=== PATIENT | female | born 1995 | race Caucasian/White ===

== ENCOUNTER 2023-10-30 19:47 | Emergency (ER) | payer OTHER, SELFPAY ==
--- NOTE | ~2023-10-30 | US_ITS ---
EXAMINATION: US OB <=14 wk fetus w TV DATE: 10/30/2023 22:55 INDICATION: Back pain. Abdominal pain. Spotting. TECHNIQUE: Real-time transabdominal and transvaginal pelvic ultrasound was performed. COMPARISON: None. FINDINGS: TRANSABDOMINAL ULTRASOUND: The uterus measures 10.5 x 6.7 x 6.0 cm. TRANSVAGINAL ULTRASOUND: There is an intrauterine gestational sac. A yolk sac is identified. The fet al crown rump length measures 1.6 cm, which correlates with an estimated gestational age of 8 weeks a nd 0 day(s) (+/-) 5 day(s). heart motion is identified measuring 145 beats per minute (bpm) by M-mode Doppler. The right ovary measures 4.8 x 4.0 x 5.2 cm. There is a 4.9 cm cyst in right ovary. T he left ovary is not visualized. There is normal vascular flow in right ovary. There is no free fluid in the pelvis. IMPRESSION: 1. Single living intrauterine gestation with estimated date of delivery of 06/10/2024. 2. 4.9 cm cyst in right ovary, likely a follicular cyst. Reviewed, dictated and finalized at location E. ATIONS MGR
[2023-10-30 20:01] VITALS: BP 106/60; PULSE 120; RESP 20; TEMP 36.6; O2SAT 99
[2023-10-30] MEDS: ACETAMINOPHEN 500 MG TABLET 1000 MG PO (23:47)
--- NOTE | 2023-10-31 00:12 | ED.PREGNANCY ---
HPI - General Chief complaint: Vaginal Bleeding Stated complaint: 9 weeks- back pain/spotting Time Seen by Provider: 10/30/23 22:56 Source: patient Mode of arrival: ambulatory Limitations: no limitations History of Present Illness HPI Narrative: Patient is a 28-year-old female who presents the ED with report of lower back pain. Patient reports having pain all day today. She has not tried anything for the pain. She is currently around 9 weeks gestation. . She is scheduled follow-up with Dr. Dajuan Guevara. She has not had a ultrasound yet for this . Also reports having pain in her right lower pelvic region. Reports morning sickness for the last few weeks, denies current nausea. Denies vomiting today. Denies vaginal bleeding. Denies diarrhea, constipation, fevers, dysuria, hematuria, numbness, weakness, saddle anesthesia. Related Data Allergies Allergy/AdvReac Type Severity Reaction Status Date / Time No Known Allergies Allergy Verified 10/30/23 19:48 Review of Systems Review of Systems: CONSTITUTIONAL: Denies fever, chills, or sweats. CARDIOVASCULAR: Denies chest pain. RESPIRATORY: Denies cough or dyspnea. GASTROINTESTINAL: See HPI. GENITOURINARY: See HPI. MUSCULOSKELETAL: See HPI. All systems reviewed & are unremarkable except as noted in HPI and below Exam Narrative: GENERAL: Well appearing, thin, non-toxic, in no acute distress. HEAD: Normocephalic, atraumatic. RESPIRATORY: Airway patent, respirations nonlabored. Clear to auscultation bilaterally, no rales, rhonchi, wheezing. CARDIOVASCULAR: Regular rate and rhythm without murmurs, rubs, or gallops. ABDOMINAL: Soft, mild tenderness in right lower pelvic region, nondistended. Normoactive BS. MUSCULOSKELETAL: Moves all extremities. No gross deformities. No midline thoracic or lumbar spinal tenderness. Mild tenderness to right lumbosacral region. SKIN: Warm, dry, normal color. NEURO: A&O X3. Speech clear. Cranial nerves II-XII grossly intact. Steady gait. No ataxic movements. PSYCHIATRIC: Tearful. Normal interaction. Course Vital Signs Vital signs: Vital Signs Temperature 97.9 F 10/30/23 20:01 Pulse Rate 120 H 10/30/23 20:01 Respiratory Rate 20 10/30/23 20:01 Blood Pressure 106/60 10/30/23 20:01 Pulse Oximetry 99 10/30/23 20:01 Oxygen Delivery Room Air 10/30/23 20:01 Temperature 97.9 F 10/30/23 20:01 Pulse Rate 84 10/31/23 00:39 Respiratory Rate 17 10/31/23 00:39 Blood Pressure 101/64 10/31/23 00:39 Pulse Oximetry 99 10/31/23 00:39 Oxygen Delivery Room Air 10/30/23 20:01 MDM - OB/Uterine Contractions MDM Narrative Medical decision making narrative: Patient presented to ED with lower back pain, right lower pelvic pain, currently around 9 weeks gestation. Has not had ultrasound for this . Has not tried anything for pain today. Vitals are stable upon arrival. Patient neurologically intact. No evidence of cauda equina or cord compression. She is denying any red flag symptoms. Beta quant nearly 132K. Ultrasound was obtained and showing single live IUP, 8 weeks +/-5 days. Good heart tones. No free fluid. Ultrasound does also show decent sized right ovarian cyst. +vascular blood flow to ovary. Urinalysis was obtained, shows 11-20 WBC. Patient denies urinary complaints. Will send for culture and treat given status/plus presence of back pain. Urinalysis did show 4+ ketones. I updated patient on this. Offered to give IV fluids, however patient declined. Declined further laboratory studies. She was updated on US findings and need for f/u with OBGYN. Patient voiced understanding. She states she is ready to go home. She was given Tylenol in the ED. Advised to continue this as needed for pain. Will send in prescription for nausea medicine. Given strict return precautions. Discharged in stable condition. VSS at time of d/c. Medical Records Attestation: I reviewed th
[2023-10-31 00:21] LABS: Appearance Urine Clear (Clear); Bacteria Urine None Seen /hpf; Bilirubin Urine Negative (Negative); Color Urine Yellow (Yellow); Glucose Urine UA Negative (Negative); Ketones Urine 4+ mg/dL (Negative); Leukocyte Esterase Ur Negative LEU/UL (Negative); Mucus Urine Present /lpf; Need Manual Microscopic Reviewed; Nitrate Urine Negative (Negative); Non Pathogenic Casts 0-2; Protein Urine Trace mg/dL (Negative); Specific Grav Ur 1.028 (1.001-1.035); Squamous Epithelial Cell Urine Occasional /hpf (Few)
[2023-10-31 00:22] LABS: Add Urine Microscopic? YES
[2023-10-31 00:39] VITALS: BP 101/64; PULSE 84; RESP 17; O2SAT 99
== END 2023-10-31 00:41 | disposition home or self-care (01) ==
PROVIDERS: Emergency Provider Physician Assistant
DX: O99.891 Other specified diseases and conditions complicating pregnancy (principal); M54.50 Low back pain, unspecified; O34.81 Maternal care for other abnormalities of pelvic organs, first trimester; N83.201 Unspecified ovarian cyst, right side; O26.891 Other specified pregnancy related conditions, first trimester; R82.71 Bacteriuria; Z3A.08 8 weeks gestation of pregnancy
CPT/HCPCS: 36415; 76801; 76817; 81001; 84702; 87086; 99284; A9270

== ENCOUNTER 2024-03-28 23:35 | Observation (INO) | payer OTHER, SELFPAY ==
--- NOTE | ~2024-03-28 | US_ITS ---
US abdomen limited 03/29/2024 07:52 Indication: Patient is . Abdomen pain. Procedure: High-resolution Limited ultrasound of the right lower quadrant Comparison: No prior studies for comparison. Findings: No discrete fluid collections are identified. The appendix is not visualized. No abnormal f luid collections. Impression: 1: Unremarkable limited ultrasound of the right lower abdomen. Appendix not visualized. Reviewed, dictated and finalized at location B. Impression: 1: Unremarkable limited ultrasound of the right lower abdomen. Appendix not vis ualized.
--- NOTE | ~2024-03-28 | US_ITS ---
US renal BI 03/29/2024 07:52 Procedure: Realtime transabdominal ultrasound of the kidneys and bladder. Indication: Right lower quadrant pain Comparison: Ultrasound dated 10/30/2023 Findings: Renal echotexture is normal bilaterally without hydronephrosis, contour deforming mass. The re are echogenic foci in the right kidney with posterior shadowing, consistent with renal stones. The right kidney measures 14 cm and left kidney measures 12.6 cm. Bladder within normal limits. Impression: 1: Multiple echogenic right renal foci with shadowing, consistent with stones. Reviewed, dictated and finalized at location B. Impression: 1: Multiple echogenic right renal foci with shadowing, consistent with stones.
[2024-03-29] VITALS (7 sets, daily range): BP systolic 96–113; BP diastolic 53–75; PULSE 84–97; BMI 26.2
[2024-03-29 00:15] LABS: Appearance Urine Clear (Clear); Bacteria Urine None Seen /hpf; Bilirubin Urine Negative (Negative); Blood Urine 2+ (Negative); Color Urine Yellow (Yellow); Glucose Urine UA Negative (Negative); Ketones Urine 3+ mg/dL (Negative); Leukocyte Esterase Ur Negative LEU/UL (Negative); Nitrate Urine Negative (Negative); Non Pathogenic Casts 0-2; Protein Urine 2+ mg/dL (Negative); RBC Urine >100 /hpf (0-2); Squamous Epithelial Cell Urine Occasional /hpf (Few); Urobilinogen Urine 0.2 mg/dL (<2.0); pH Urine 7.5 (5.0-9.0)
[2024-03-29 00:40] LABS: Add Urine Microscopic? YES
[2024-03-29] MEDS: ACETAMINOPHEN 500 MG TABLET 1000 MG PO ×2 (00:59→08:15)
[2024-03-29 01:59] LABS: Hemoglobin 11.7 g/dL (12.0-15.0); Mean Corpuscular HGB Conc 34.4 g/dl (32-36); Mean Corpuscular Hemoglobin 33.3 pg (26-34); Mean Corpuscular Volume 96.9 fl (80-100); Mean Platelet Volume 10.6 fl (7.4-10.4); Platelet Count Result 183 k/mm3 (150-375); Red Blood Count 3.51 M/mm3 (4.2-5.4); Red Cell Distribution Width 12.2 % (11.5-14.5); White Blood Count 15.7 K/mm3 (4.5-10.0)
[2024-03-29 02:20] LABS: Alanine Aminotransferase 11 U/L (6-35); Albumin Level 3.4 g/dL (3.5-5.1); Alkaline Phosphatase 80 U/L (38-126); Anion Gap 8 mmol/L (4-12); Aspartate Amino Transferase 21 U/L (14-36); Bilirubin,Total 0.3 mg/dL (0.2-1.3); Blood Urea Nitrogen 4 mg/dL (7-17); Calcium 7.9 mg/dL (8.4-10.2); Carbon Dioxide 21 mmol/L (22-30); Chloride 106 mmol/L (98-107); Estimated CRCL calculation 146 ml/min; Estimated Glomerular Filt Rate > 60; Glucose 78 mg/dL (65-110); Potassium 3.2 mmol/L (3.4-5.0); Sodium 135 mmol/L (137-145)
--- NOTE | 2024-03-29 08:41 | WPDOBADMIT ---
Obstetrics - Admit Note Admission Note: 29 y/o at 30 weeks gestation with RLQ, side pain since last night. No dysuria. Good movement. Has been constipated for days. No fever. No vaginal bleeding. AVSS NST: good variability, gestationally reactive. TOCO: no contractions ABD soft, mild tenderness along round ligament, remote from McBurney's point. EXT nontender Back: No CVA tenderness UA shows 2+rbc, 3+ketones, 2+protein WBC 15k Renal and RLQ ultrasounds unremarkable to my review. Radiology review still pending. A: IUP at 30 weeks with dehydration, possible cystitis. P: Home on Macrobid, oral hydration and regular meals. Precautions reviewed. Follow up as scheduled.
--- NOTE | 2024-04-06 12:31 | P.PNOB_ITS ---
OB - Triage/Final Diagnosis Visit Information Comments/Additional reasons for admission: I have assessed the risk for this patient, Katerin Alvarez, and determined that she would benefit from observation care. Evaluation Laboratory results: Laboratory Tests 03/29/24 03/29/24 00:03 01:55 WBC 15.7 H RBC 3.51 L Hgb 11.7 L Hct 34.0 L MCV 96.9 MCH 33.3 MCHC 34.4 RDW 12.2 Plt Count 183 MPV 10.6 H Sodium 135 L Potassium 3.2 L Chloride 106 Carbon Dioxide 21 L Anion Gap 8 BUN 4 L Creatinine 0.40 L Estim Creat Clear Calc 146 Estimated GFR > 60 Glucose 78 Calcium 7.9 L Total Bilirubin 0.3 AST 21 ALT 11 Alkaline Phosphatase 80 Total Protein 6.0 L Albumin 3.4 L Urine Color Yellow Urine Appearance Clear Urine pH 7.5 Ur Specific Farber 1.010 Urine Protein 2+ H Urine Glucose (UA) Negative Urine Ketones 3+ H Ur Blood (Man) 2+ H Urine Nitrate Negative Urine Bilirubin Negative Urine Urobilinogen 0.2 Leukocyte Esterase Rfl Negative Urine RBC >100 H Urine WBC 6-10 H Ur Squamous Epith Cells Occasional Urine Bacteria None seen Urine Casts 0-2 Final Diagnosis (1) Flank pain in patient: Code(s): O26.899 - Other specified related conditions, unspecified trimester; R10.9 - Unspecified abdominal pain Status: Acute
== END 2024-03-29 09:10 | disposition home or self-care (01) ==
PROVIDERS: Admitting Provider Obstetrics & Gynecology Gynecology; Visit Provider Obstetrics & Gynecology
DX: O26.893 Other specified pregnancy related conditions, third trimester (principal); R10.31 Right lower quadrant pain; Z3A.30 30 weeks gestation of pregnancy
CPT/HCPCS: 36415; 76705; 76775; 80053; 81001; 85027; 87077; 87086; 87088; 87186; 99199; A9270; G0378; G0379

== ENCOUNTER 2024-05-28 05:05 | Inpatient (IN) | payer OTHER, SELFPAY ==
[2024-05-28] VITALS (112 sets, daily range): BP systolic 82–130; BP diastolic 44–92; PULSE 61–170; RESP 16; TEMP 36.3–36.8; O2SAT 76–100; BMI 26.5
--- NOTE | 2024-05-28 05:25 | LDADM ---
This patient, Katerin Alvarez, was admitted to Labor/Delivery/Recovery 105 on 05/28/24 at 05:05. Plans for labor, pain management and were discussed with patient. Patient/family oriented to hospital policies and general routines including ID bracelet, bed and alarms, visiting hours, pain management, procedures, bathroom and other care routines, personal items, smoking policy, room service/diet and guest tray routines, infant security routines, and visiting hours. Patient/Family are encouraged to report perceived risks to care and to ask questions if they do not understand what they are told or what they should do. See OBIX for further documentation.
--- NOTE | 2024-05-28 05:39 | PM.IMHP ---
H&P: HPI History of Present Illness Date/Time: 05/28/24 05:39 Chief Complaint: Term for induction Narrative: the room 3 para 2 whose last menstrual period was EDC is 06/04/2024 confirmed by ultrasound presents 39 weeks gestation for induction of labor. Advanced cervical dilatation at 3-4 cm. has been uncomplicated she is negative for group B strep PMFSH Family History Family History Other Unknown family medical history Social History Social History Smoking status: Never smoker Substance use: former Do You Feel Safe in your Home?: Yes Lack of Transportation: No Lack of Food: Never True Current Housing: I Have Housing Concerned About Future Housing: No Difficulty Paying Gas/Electric Bills: No Difficulty Paying for Meds: No Currently Unemployed: No Education: Associate Degree Difficulty w/ Childcare or Family Care: No Spiritual care concerns: No Meds Home Medications and Allergies Home Medications Medication Instructions Recorded Confirmed Type No Home Medications 05/05/24 05/05/24 History Allergies Allergy/AdvReac Type Severity Reaction Status Date / Time No Known Allergies Allergy Verified 05/05/24 15:29 Vital Signs Vital Signs - 24 hr 05/28/24 05:20 05/28/24 05:24 Pulse Rate 115 H Blood Pressure 115/79 Oxygen Delivery Room Air Exam Const: General: cooperative, healthy appearing and comfortable Nutritional Appearance: average body habitus Orientation/consciousness: oriented to person, oriented to place and oriented to time Resp: Effort & Inspection: normal respiratory effort Cardio: Rate: regular rate Rhythm: regular rhythm Heart sounds: S1 normal heart sound present and S2 normal heart sound present GI: Inspection: normal to inspection ( soft gravid uterus) : External Female Exam: normal external appearance Speculum Exam - Vagina: normal appearance of the vagina Speculum Exam - Cervix: normal appearance of the cervix ( cervix 3/75/1. AROM clear. FHTs) Assessment and Plan Assessment and plan (1) Term : Code(s): Z34.90 - Encounter for supervision of normal , unspecified, unspecified trimester Status: Acute
[2024-05-28 05:50] LABS: Basophils Percent Auto 0.3 % (0.2-1.2); Eosinophils Absolute Auto 0.1 K/mm3 (0-0.3); Eosinophils Percent Auto 0.8 % (0-4.4); Hematocrit 27.6 % (37.0-47.0); Hemoglobin 9.2 g/dL (12.0-15.0); Immature Granulocyte Absolute 0.09 K/mm3 (0.00-0.031); Immature Granulocyte Percent A 0.9 % (0-0.5); Lymphocytes Absolute Auto 2.21 K/mm3 (0.9-3.2); Lymphocytes Percent Auto 22.2 % (18.3-44.2); Mean Corpuscular HGB Conc 33.3 g/dl (32-36); Mean Corpuscular Hemoglobin 30.9 pg (26-34); Mean Corpuscular Volume 92.6 fl (80-100); Mean Platelet Volume 10.9 fl (7.4-10.4); Monocytes Absolute Auto 0.5 K/mm3 (0.1-0.6); Monocytes Percent Auto 4.8 % (2.6-8.5); Neutrophils Absolute Auto 7.1 K/mm3 (1.3-6.7); Platelet Count Result 197 k/mm3 (150-375); Red Blood Count 2.98 M/mm3 (4.2-5.4); Red Cell Distribution Width 12.5 % (11.5-14.5)
[2024-05-28] MEDS: LACTATED RINGERS 1,000 ML 125 ML IV CONT ×2 (06:06→09:24)
[2024-05-28] MEDS: OXYTOCIN 30 UNITS/NS 500 ML 30 UNITS/500 ML BAG IV CONT (06:07)
[2024-05-28 06:41] LABS: HIV 1/2 Ab P24 Ag Result Negative (Negative)
[2024-05-28 07:54] LABS: Rapid Plasma Reagin Non-Reactive (NonReactive)
--- NOTE | 2024-05-28 11:26 | WPDANESEPPF ---
Anes - Initial Pre Proc Eval Date/Time: 05/28/24 11:26 Surgeon: Nils Guevara MD Pre Op Diagnosis: IOL Patient Data Age: 29 Gender: F Height: 1.6 m Weight: 68 kg Last Vital Signs Temp 36.3 C L 05/28/24 09:26 Pulse 89 05/28/24 11:00 BP 105/62 05/28/24 11:00 Pulse Ox 97 05/28/24 11:23 O2 Del Method Room Air 05/28/24 05:24 Allergies Allergy/AdvReac Type Severity Reaction Status Date / Time No Known Allergies Allergy Verified 05/05/24 15:29 Home Medications Medication Instructions Recorded Confirmed Type No Home Medications 05/05/24 05/05/24 History Laboratory Tests 05/28/24 05:34 WBC 10.0 K/mm3 (4.5-10.0) RBC 2.98 L M/mm3 (4.2-5.4) Hgb 9.2 L g/dL (12.0-15.0) Hct 27.6 L % (37.0-47.0) MCV 92.6 fl (80-100) MCH 30.9 pg (26-34) MCHC 33.3 g/dl (32-36) RDW 12.5 % (11.5-14.5) Plt Count 197 k/mm3 (150-375) MPV 10.9 H fl (7.4-10.4) Immature Gran % (Auto) 0.9 H % (0-0.5) Neut % (Auto) 71.0 % (45.5-73.1) Lymph % (Auto) 22.2 % (18.3-44.2) [place] % (Auto) 4.8 % (2.6-8.5) Eos % (Auto) 0.8 % (0-4.4) Baso % (Auto) 0.3 % (0.2-1.2) Lymph # (Auto) 2.21 K/mm3 (0.9-3.2) [place] # (Auto) 0.5 K/mm3 (0.1-0.6) Eos # (Auto) 0.1 K/mm3 (0-0.3) Baso # (Auto) 0.0 K/mm3 (0.0-0.1) Abs Immat Gran (auto) 0.09 H K/mm3 (0.00-0.031) Absolute Neuts (auto) 7.1 H K/mm3 (1.3-6.7) Absolute Nucleated RBC 0.000 K/mm3 (0.0-0.012) Nucleated RBC % 0.0 % (0.0-0.2) RPR Non-reactive (NonReactive) HIV 1&2 Ab/P24 Ag 4thGn Negative (Negative) Blood Type A Positive Antibody Screen Negative Patient hx anesthesia problems: none Family hx anesthesia problems: none Results Review: All pre-operative results and documents have been reviewed as part of the pre-operative evaluation. [facility] Family History Family History Other Unknown family medical history Social History Social History Smoking status: Never smoker Substance use: former Do You Feel Safe in your Home?: Yes Lack of Transportation: No Lack of Food: Never True Current Housing: I Have Housing Concerned About Future Housing: No Difficulty Paying Gas/Electric Bills: No Difficulty Paying for Meds: No Currently Unemployed: No Education: Associate Degree Difficulty w/ Childcare or Family Care: No Spiritual care concerns: No Anes - Eval Final PreProcedure Day of Procedure 05/28/24 11:26 Patient weight: overweight Neurological: alert and oriented ASA classification: II Emergent: no Anesthetic plan: proceed Anesthesia type and monitoring: regional epidural and standard monitoring Results Review: All pre-operative results and documents have been reviewed as part of the pre-operative evaluation. Informed Consent: The patient's anesthetic plan and its attendant risks and benefits were discussed with the patient/family/POA. Questions were solicited and answers provided to the satisfaction of the patient/family/POA.
--- NOTE | 2024-05-28 12:36 | PM.OBPNLAB ---
Pain Control Date/time seen: 05/28/24 12:36 Pain control: tolerating well and epidural Pelvic Exam Dilation (cm): 9 Effacement (%): 90 station: -2 Amniotic membrane status: Leaking
[2024-05-28] MEDS: ONDANSETRON INJ 4 MG/2 ML VIAL IV PUSH (12:54)
[2024-05-28] MEDS: OXYTOCIN 30 UNITS/NS 500 ML 30 UNITS/500 ML BAG 125 UNITS IV CONT (13:58)
--- NOTE | 2024-05-28 14:00 | PM.OBPRVD ---
OB - Vaginal Delivery Note Procedure Delivery date: 05/28/24 Events: Elective Induction of Labor Induction method: AROM Delivery augmentation: Pitocin Delivery monitor: External FHT and External Uterine Route of delivery: Episiotomy description: None Laceration Description: None Quantitative Blood Loss (ml): 161 Anesthesia type: Epidural Disposition: Floor Complications: No immediate complications Narrative: Patient was admitted for induction labor at 39 weeks gestation underwent spontaneous vaginal delivery. When she was complete she pushed delivered the head spontaneously in the YONI position. Anterior posterior shoulder was then delivered spontaneously after a bit of shoulder dystocia which involved suprapubic pressure and the corkscrew rotation. Placenta delivered intact spontaneously. Twenty of Pitocin placed IV to help firm after expect normal sidewalls no tears or lacerations were noted. The baby showed no sign of shoulder injury Baby Date of : 05/28/24 Time of : 13:43 Gestational Age by Date: 39 Infant gender: Male presentation: vertex position: Right Occiput Anterior Placenta delivery description: Spontaneous Cord Vessel Description: 3 Vessels, Nuchal Cord, Loose and Reduced score one minute: 8 score five minutes: 9
--- NOTE | 2024-05-28 14:02 | PM.DS ---
DS: Admitting Diagnosis Discharge Date 05/29/24 <Petra Abebe MD - Last Filed: 05/29/24 09:48> Admitting Diagnosis term <Nils Guevara MD - Last Filed: 05/31/24 06:58> DS: Discharge Diagnosis Discharge Diagnosis (1) Term : Code(s): Z34.90 - Encounter for supervision of normal , unspecified, unspecified trimester <Nils Guevara MD - Last Filed: 05/31/24 06:58> Status: Acute <Nils Guevara MD - Last Filed: 05/31/24 06:58> DS: Summary Hospital Course Reason for hospitalization: the patient was admitted for induction of labor 05/28/2024. She underwent spontaneous vaginal delivery with epidural anesthesia <Nils Guevara MD - Last Filed: 05/31/24 06:58> Hospital Course: patient's hospital course unremarkable. She remained afebrile. She was up, voiding without difficulty, eating regular diet, ambulating, a generally without complaints. <Nils Guevara MD - Last Filed: 05/31/24 06:58> Time Spent with Patient Time attestation: Total time spent providing and/or coordinating discharge services: <Nils Guevara MD - Last Filed: 05/31/24 06:58> Exam Const: General: cooperative, healthy appearing and comfortable <Nils Guevara MD - Last Filed: 05/31/24 06:58> Nutritional Appearance: average body habitus <Nils Guevara MD - Last Filed: 05/31/24 06:58> Orientation/consciousness: oriented to person, oriented to place and oriented to time <Nils Guevara MD - Last Filed: 05/31/24 06:58> Resp: Effort & Inspection: normal respiratory effort <Nils Guevara MD - Last Filed: 05/31/24 06:58> Cardio: Rate: regular rate <Nils Guevara MD - Last Filed: 05/31/24 06:58> Rhythm: regular rhythm <Nils Guevara MD - Last Filed: 05/31/24 06:58> Heart sounds: S1 normal heart sound present and S2 normal heart sound present <Nils Guevara MD - Last Filed: 05/31/24 06:58> GI: Inspection: normal to inspection <Nils Guevara MD - Last Filed: 05/31/24 06:58> DS: Data Data Completed and Pending Labs on day of discharge: Labs from last 24 hours 05/28/24 05:34 WBC 10.0 RBC 2.98 L Hgb 9.2 L Hct 27.6 L MCV 92.6 MCH 30.9 MCHC 33.3 RDW 12.5 Plt Count 197 MPV 10.9 H Immature Gran % (Auto) 0.9 H Neut % (Auto) 71.0 Lymph % (Auto) 22.2 [place] % (Auto) 4.8 Eos % (Auto) 0.8 Baso % (Auto) 0.3 Lymph # (Auto) 2.21 [place] # (Auto) 0.5 Eos # (Auto) 0.1 Baso # (Auto) 0.0 Abs Immat Gran (auto) 0.09 H Absolute Neuts (auto) 7.1 H Absolute Nucleated RBC 0.000 Nucleated RBC % 0.0 RPR Non-reactive HIV 1&2 Ab/P24 Ag 4thGn Negative Blood Type A Positive Antibody Screen Negative <Nils Guevara MD - Last Filed: 05/31/24 06:58> Discharge Plan Discharge Attending physician on discharge: Nils Bowie <Nils Guevara MD - Last Filed: 05/31/24 06:58> Nils Bowie <Petra Abebe MD - Last Filed: 05/29/24 09:48> Discharging Clinician: Nils Bowie <Nils Guevara MD - Last Filed: 05/31/24 06:58> Nils Bowie <Petra Abebe MD - Last Filed: 05/29/24 09:48> Patient Disposition: Home, Self-Care <Nils Guevara MD - Last Filed: 05/31/24 06:58> Activity: may shower, no straining and pelvic rest <Nils Guevara MD - Last Filed: 05/31/24 06:58> may shower, no straining and pelvic rest <Petra Abebe MD - Last Filed: 05/29/24 09:48> Diet: heart healthy <Nils Guevara MD - Last Filed: 05/31/24 06:58> heart healthy <Petra Abebe MD - Last Filed: 05/29/24 09:48> Wound Care Instructions: follow printed instructions <Nils Guevara MD - Last Filed: 05/31/24 06:58> follow printed instructions <Petra Abebe MD - Last Filed: 05/29/24 09:48> Dischar
[2024-05-28] MEDS: METHYLERGONOVINE MALEATE 0.2 MG/ML VIAL IM (14:10)
[2024-05-28] MEDS: BENZOCAINE 20% AER SPR (*SP) 56 GM CAN 1 SPRAY TOPICAL (15:53)
[2024-05-28] MEDS: WITCH HAZEL 40 PADS 1 PAD TOPICAL (15:53)
--- NOTE | 2024-05-28 16:33 | OBPPTRN ---
1605-Patient transferred to post room #292 via wheelchair. Support person present. Oriented to unit, room, information board, rooming in, admission packet and security measures. Patient verbalizes understanding.
[2024-05-28] MEDS: POLYSACCHARIDE IRON COMPLEX 150 MG CAPSULE PO (17:28)
[2024-05-28] MEDS: DOCUSATE SODIUM 100 MG CAPSULE PO (17:28)
[2024-05-28] MEDS: IBUPROFEN 600 MG TABLET PO ×2 (17:28→22:54)
[2024-05-29 00:54] VITALS: BP 122/82; PULSE 67; RESP 16; TEMP 36.9; O2SAT 99
[2024-05-29] MEDS: ACETAMINOPHEN 325 MG TABLET 650 MG PO ×2 (01:34→12:27)
[2024-05-29 02:34] VITALS: TEMP 36.9
[2024-05-29 05:57] LABS: Hematocrit 28.5 % (37.0-47.0); Hemoglobin 9.6 g/dL (12.0-15.0)
--- NOTE | 2024-05-29 07:39 | WPDANLDPN2 ---
Anes-Prog Note L&D Date/Time: 05/29/24 07:39 Comfortable throughout: labor and delivery Neuraxial method: epidural Epidural/Spinal procedure site: clean & non-tender Neuro status: Neuro function grossly intact. Cardiovascular status: normal Respiratory status: normal Airway patency: baseline Mental status: baseline Post-Op hydration status: normal Vital Signs: Last Vital Signs Temp 36.9 C 05/29/24 02:34 Pulse 67 05/29/24 00:54 Resp 16 05/29/24 00:54 BP 122/82 05/29/24 00:54 Pulse Ox 99 05/29/24 00:54 O2 Del Method Room Air 05/28/24 20:48 Pain score (VAS): 0/10 I/O: Intake & Output 05/28/24 05/28/24 05/29/24 15:59 23:59 07:59 Intake Total 2500 Output Total 211 Balance 2289 Post-procedural complaints: none Patient feedback: Patient satisfied with anesthetic care.
[2024-05-29 08:00] VITALS: BP 107/70; PULSE 76; RESP 16; TEMP 36.6; O2SAT 100
[2024-05-29] MEDS: POLYSACCHARIDE IRON COMPLEX 150 MG CAPSULE PO ×2 (08:06→16:54)
[2024-05-29] MEDS: DOCUSATE SODIUM 100 MG CAPSULE PO ×2 (08:06→16:54)
[2024-05-29] MEDS: IBUPROFEN 600 MG TABLET PO (08:06)
--- NOTE | 2024-05-29 09:47 | PM.OBPNVD ---
OB - PN: Subj Subjective Date/time seen: 05/29/24 09:47 Patient comments: no complaints and pain well controlled baby status: doing well OB - PN: Obj Data Labs 05/29/24 05:47 Labs: Laboratory Results - last 24 hr 05/29/24 05:47 Hgb 9.6 L Hct 28.5 L OB - PN A/P Plan day: 1 Plan: routine care, discharge home and follow up 6 weeks Time Spent With Patient Time: Total time spent is greater than 50% in coordination of care (as documented) at patient's floor/unit and/or counseling patient: Exam : Bimanual exam- vagina & uterus: other (Uterus firm, nt @U)
--- NOTE | 2024-05-29 10:29 | PC.NURSE ---
Patient was given the opportunity to view the discharge video Mother & Baby Care, The First Two Weeks and to ask questions. Patient declined viewing the video and has been given the mother/baby guide for home reference.
[2024-05-29] MEDS: INFLUENZA TRIVALENT VACCINE 45 MCG/0.5 ML SYRINGE IM (12:29)
[2024-05-29 20:40] VITALS: BP 109/65; PULSE 68; RESP 16; TEMP 37; O2SAT 98
[2024-05-30 08:00] VITALS: BP 117/76; PULSE 80; RESP 16; TEMP 36.4; O2SAT 100
[2024-05-30] MEDS: POLYSACCHARIDE IRON COMPLEX 150 MG CAPSULE PO (08:19)
[2024-05-30] MEDS: DOCUSATE SODIUM 100 MG CAPSULE PO (08:19)
[2024-05-31 10:27] VITALS: BP 121/78; PULSE 83; RESP 18; TEMP 36.9; O2SAT 99
== END 2024-05-30 09:40 | disposition home or self-care (01) | DRG 807 ==
LOC: ANHLDR 14:04 → ANHOB2 05-29 10:27 → ANHLDR 06-01 08:14 → ANHOB2 06-01 08:14
PROVIDERS: Admitting Provider Obstetrics & Gynecology; Visit Provider Obstetrics & Gynecology Gynecology
DX: O66.0 Obstructed labor due to shoulder dystocia (principal); Z37.0 Single live birth; O69.81X0 Labor and delivery complicated by cord around neck, without compression, not applicable or unspecified; Z3A.39 39 weeks gestation of pregnancy; Z23 Encounter for immunization
CPT/HCPCS: 36415; 85014; 85018; 85025; 86592; 86703; 86850; 86900; 86901; 90471; 90656; A9270; G0008; G0432; J2210; J2405; J2590; J2795; J7120